=== PATIENT | female | born 1940 | race Caucasian/White ===

== ENCOUNTER 2017-05-01 16:30 | Inpatient (IN) | payer MEDICARE, OTHER ==
[~2017-05-01] VITALS: Ht 152.4 cm; Wt 60.9 kg
[~2017-05-01 16:30] MED LIST: AMLO2.5T PO; ATEN25TA PO; ATOR80TA PO; HYDR-3237 PO; LEVO50TA PO; LISI-170 PO; MONT10TA9 PO; VENL75TA PO
[2017-05-01] MEDS ORDERED: PLEASE ENTER ALLERGIES MC SCH ×2 (17:00)
[2017-05-01] MEDS ORDERED: SODIUM CHLORIDE FLUSH 10ML SYR IVF ONE (17:00)
[2017-05-01] MEDS ORDERED: ALBUTEROL 0.5%, 20ML NPPB SCH (17:00)
[2017-05-01 17:04] LABS: HEMATOCRIT 43.7 % (34.6-47.8); HEMOGLOBIN 14.3 g/dL (11.7-16.4); WHITE BLOOD COUNT 9.1 x10^3/uL (3.4-10)
[2017-05-01 17:14] LABS: ASPARTATE AMINO TRANSFERASE 29 U/L (15-37); BLOOD UREA NITROGEN 15 mg/dL (7-18)
[2017-05-01 17:21] LABS: IS PT STATUS REG ER OR PRE ER? YES
[2017-05-01] MEDS ORDERED: CEFTRIAXONE PMX 1GM/50ML 50 ML IVPB ONE (18:30)
[2017-05-01] MEDS ORDERED: AZITHROMYCIN 500 MG in SODIUM CHLORIDE 0.9% 250 ML IVPB ONE (18:30)
[2017-05-01] MEDS ORDERED: SODIUM CHLORIDE FLUSH 10ML SYR IVF PRN (19:00)
[2017-05-01] MEDS ORDERED: CEFTRIAXONE PMX 1GM/50ML 50 ML ONE (19:27)
[2017-05-01] MEDS: ENOXAPARIN 40 MG/0.4 ML SQ SCH (20:30)
[2017-05-01] MEDS ORDERED: GUAIFENESIN/DM 200-20MG, 10ML UDC PO PRN (20:30)
[2017-05-01] MEDS ORDERED: ACETAMINOPHEN 325 MG TABLET PO PRN (20:30)
[2017-05-01] MEDS ORDERED: ONDANSETRON 2MG/ML, 2ML IVPush PRN (20:30)
[2017-05-01] MEDS ORDERED: hydrALAzine 20 MG/ML, 1ML IVPush PRN (20:30)
[2017-05-01] MEDS ORDERED: POLYETHYLENE GLYCOL 17 GM PACKET PO PRN (20:30)
[2017-05-01] MEDS ORDERED: DOCUSATE 100 MG CAPSULE PO PRN (20:30)
[2017-05-01] MEDS: ATORVASTATIN 80 MG TABLET PO SCH (21:00)
[2017-05-01] MEDS ORDERED: methylPREDNISolone SOD SUCC 40 MG/ML ONE (21:23)
[2017-05-01] MEDS: methylPREDNISolone SOD SUCC 40 MG/ML IV SCH (21:27)
[2017-05-01] MEDS ORDERED: ALBUTEROL SULFATE 2.5 MG/3 ML NPPB PRN (22:00)
[2017-05-01] MEDS ORDERED: LISINOPRIL 20 MG TABLET ONE (22:25)
[2017-05-01] MEDS ORDERED: ENOXAPARIN 40 MG/0.4 ML ONE (22:26)
[2017-05-01] MEDS ORDERED: HYDROcodone/APAP 5/325 TABLET ONE (22:26)
[2017-05-01] MEDS: HYDROcodone/APAP 5/325 TABLET PO SCH (22:42)
[2017-05-01] MEDS: SODIUM CHLORIDE FLUSH 10ML SYR IVF SCH (22:43)
[2017-05-01] MEDS: LISINOPRIL 20 MG TABLET PO SCH (22:43)
[2017-05-02 00:09] VITALS: BP 138/86
[2017-05-02 02:30] VITALS: BP 83/53
[2017-05-02] MEDS ORDERED: FUROSEMIDE 20 MG/2 ML ONE (05:24)
[2017-05-02] MEDS: LEVOTHYROXINE 50 MCG TABLET PO SCH (05:35)
[2017-05-02] MEDS: methylPREDNISolone SOD SUCC 40 MG/ML IV SCH ×3 (05:36→21:57)
[2017-05-02] MEDS: HYDROcodone/APAP 5/325 TABLET PO SCH ×4 (05:37→21:59)
[2017-05-02] MEDS ORDERED: FUROSEMIDE 40 MG/4 ML IV ONE (06:00)
[2017-05-02 06:13] LABS: HEMATOCRIT 39.2 % (34.6-47.8); HEMOGLOBIN 12.9 g/dL (11.7-16.4); WHITE BLOOD COUNT 5.4 x10^3/uL (3.4-10)
[2017-05-02 06:24] LABS: BLOOD UREA NITROGEN 11 mg/dL (7-18)
[2017-05-02 06:59] VITALS: BP 148/73
[2017-05-02] MEDS: AMLODIPINE 2.5 MG TABLET PO SCH (08:31)
[2017-05-02] MEDS: MONTELUKAST 10 MG TABLET PO SCH (08:31)
[2017-05-02] MEDS: VENLAFAXINE 75 MG CAP ER PO SCH (08:31)
[2017-05-02] MEDS: ATENOLOL 25 MG TABLET PO SCH (08:31)
[2017-05-02] MEDS: LISINOPRIL 20 MG TABLET PO SCH ×2 (08:31→21:58)
[2017-05-02] MEDS: SODIUM CHLORIDE FLUSH 10ML SYR IVF SCH ×2 (08:32→21:59)
[2017-05-02] MEDS ORDERED: POTASSIUM CHLORIDE 20 MEQ TAB.ER.PRT PO ONE (09:00)
[2017-05-02 12:26] VITALS: BP 143/75
[2017-05-02] MEDS ORDERED: ONDANSETRON 2MG/ML, 2ML IVPush PRN (20:00)
[2017-05-02] MEDS ORDERED: SODIUM CHLORIDE FLUSH 10ML SYR IVF PRN (20:00)
[2017-05-02] MEDS ORDERED: ACETAMINOPHEN 325 MG TABLET PO PRN (20:00)
[2017-05-02] MEDS ORDERED: POLYETHYLENE GLYCOL 17 GM PACKET PO PRN (20:00)
[2017-05-02] MEDS ORDERED: DOCUSATE 100 MG CAPSULE PO PRN (20:00)
[2017-05-02] MEDS ORDERED: GUAIFENESIN/DM 200-20MG, 10ML UDC PO PRN (20:00)
[2017-05-02] MEDS ORDERED: ALBUTEROL SULFATE 2.5 MG/3 ML NPPB PRN (20:00)
[2017-05-02] MEDS ORDERED: hydrALAzine 20 MG/ML, 1ML IVPush PRN (20:00)
[2017-05-02 21:53] VITALS: BP 158/64
[2017-05-02] MEDS: ENOXAPARIN 40 MG/0.4 ML SQ SCH (21:58)
[2017-05-02] MEDS: ATORVASTATIN 80 MG TABLET PO SCH (21:58)
[2017-05-03 03:08] VITALS: BP 138/60
[2017-05-03] MEDS: HYDROcodone/APAP 5/325 TABLET PO SCH ×4 (06:49→20:11)
[2017-05-03] MEDS: methylPREDNISolone SOD SUCC 40 MG/ML IV SCH ×2 (06:49→15:56)
[2017-05-03] MEDS: LEVOTHYROXINE 50 MCG TABLET PO SCH (06:49)
[2017-05-03 08:00] VITALS: BP 160/75
[2017-05-03] MEDS ORDERED: PHARMACOKINETIC MONITORING MC PRN (08:00)
[2017-05-03] MEDS ORDERED: PHARMACOKINETIC CONSULTATION MC ONE (08:00)
[2017-05-03] MEDS ORDERED: VANCOMYCIN PER PHARMACY MC PRN (08:00)
[2017-05-03] MEDS: VANCOMYCIN PMX 1GM/200ML 200 ML IVPB SCH (09:38)
[2017-05-03] MEDS: MONTELUKAST 10 MG TABLET PO SCH (09:39)
[2017-05-03] MEDS: VENLAFAXINE 75 MG CAP ER PO SCH (09:39)
[2017-05-03] MEDS: LISINOPRIL 20 MG TABLET PO SCH ×2 (09:39→20:11)
[2017-05-03] MEDS: ATENOLOL 25 MG TABLET PO SCH (09:39)
[2017-05-03] MEDS: AMLODIPINE 2.5 MG TABLET PO SCH (09:39)
[2017-05-03] MEDS: SODIUM CHLORIDE FLUSH 10ML SYR IVF SCH ×2 (09:40→20:20)
[2017-05-03 15:06] VITALS: BP 132/72
[2017-05-03 19:35] VITALS: BP 146/68
[2017-05-03] MEDS: ENOXAPARIN 40 MG/0.4 ML SQ SCH (20:11)
[2017-05-03] MEDS: ATORVASTATIN 80 MG TABLET PO SCH (20:11)
[2017-05-04 01:30] VITALS: BP 154/71
[2017-05-04 05:23] LABS: HEMATOCRIT 38.8 % (34.6-47.8); HEMOGLOBIN 12.7 g/dL (11.7-16.4); WHITE BLOOD COUNT 14.8 x10^3/uL (3.4-10)
[2017-05-04 05:36] LABS: BLOOD UREA NITROGEN 22 mg/dL (7-18)
[2017-05-04] MEDS: HYDROcodone/APAP 5/325 TABLET PO SCH ×4 (06:41→21:50)
[2017-05-04] MEDS: LEVOTHYROXINE 50 MCG TABLET PO SCH (06:41)
[2017-05-04 08:00] VITALS: BP 127/78
[2017-05-04] MEDS: VENLAFAXINE 75 MG CAP ER PO SCH (09:34)
[2017-05-04] MEDS: MONTELUKAST 10 MG TABLET PO SCH (09:35)
[2017-05-04] MEDS: VANCOMYCIN PMX 1GM/200ML 200 ML IVPB SCH (09:35)
[2017-05-04] MEDS: LISINOPRIL 20 MG TABLET PO SCH ×2 (09:35→21:50)
[2017-05-04] MEDS: AMLODIPINE 2.5 MG TABLET PO SCH (09:36)
[2017-05-04] MEDS: ATENOLOL 25 MG TABLET PO SCH (09:36)
[2017-05-04] MEDS: SODIUM CHLORIDE FLUSH 10ML SYR IVF SCH ×2 (09:36→21:52)
[2017-05-04 14:00] VITALS: BP 132/80
[2017-05-04 19:13] VITALS: BP 162/69
[2017-05-04] MEDS: ATORVASTATIN 80 MG TABLET PO SCH (21:50)
[2017-05-04] MEDS: ENOXAPARIN 40 MG/0.4 ML SQ SCH (21:50)
[2017-05-05 01:11] VITALS: BP 139/66
[2017-05-05 05:28] LABS: BLOOD UREA NITROGEN 25 mg/dL (7-18)
[2017-05-05 05:44] LABS: HEMATOCRIT 38.9 % (34.6-47.8); HEMOGLOBIN 12.7 g/dL (11.7-16.4); WHITE BLOOD COUNT 10.9 x10^3/uL (3.4-10)
[2017-05-05] MEDS: LEVOTHYROXINE 50 MCG TABLET PO SCH (06:11)
[2017-05-05] MEDS: HYDROcodone/APAP 5/325 TABLET PO SCH ×4 (06:12→21:00)
[2017-05-05 08:15] VITALS: BP 179/76
[2017-05-05] MEDS: AZITHROMYCIN 250 MG TABLET PO SCH (09:00)
[2017-05-05] MEDS: SODIUM CHLORIDE FLUSH 10ML SYR IVF SCH ×2 (09:00→22:10)
[2017-05-05] MEDS: VENLAFAXINE 75 MG CAP ER PO SCH (10:46)
[2017-05-05] MEDS: LISINOPRIL 20 MG TABLET PO SCH ×2 (10:46→22:09)
[2017-05-05] MEDS: MONTELUKAST 10 MG TABLET PO SCH (10:46)
[2017-05-05] MEDS: ATENOLOL 25 MG TABLET PO SCH (10:46)
[2017-05-05] MEDS: AMLODIPINE 2.5 MG TABLET PO SCH (10:46)
[2017-05-05] MEDS ORDERED: OMNIPAQUE 350 MG/ML, 100ML BOTTLE ONE (15:19)
[2017-05-05 15:25] VITALS: BP 150/71
[2017-05-05 18:50] VITALS: BP 134/72
[2017-05-05] MEDS: ENOXAPARIN 40 MG/0.4 ML SQ SCH (20:30)
[2017-05-05 22:08] VITALS: BP 149/73
[2017-05-05] MEDS: ATORVASTATIN 80 MG TABLET PO SCH (22:09)
[2017-05-06 00:11] VITALS: BP 149/65
[2017-05-06 05:05] LABS: HEMATOCRIT 38.7 % (34.6-47.8); HEMOGLOBIN 12.7 g/dL (11.7-16.4); WHITE BLOOD COUNT 10.6 x10^3/uL (3.4-10)
[2017-05-06 05:23] LABS: BLOOD UREA NITROGEN 26 mg/dL (7-18)
[2017-05-06] MEDS: HYDROcodone/APAP 5/325 TABLET PO SCH ×4 (06:00→20:04)
[2017-05-06] MEDS: LEVOTHYROXINE 50 MCG TABLET PO SCH (06:09)
[2017-05-06 07:23] VITALS: BP 149/70
[2017-05-06] MEDS: SODIUM CHLORIDE FLUSH 10ML SYR IVF SCH ×2 (09:00→20:08)
[2017-05-06] MEDS: VENLAFAXINE 75 MG CAP ER PO SCH (09:00)
[2017-05-06] MEDS: AMLODIPINE 2.5 MG TABLET PO SCH (10:32)
[2017-05-06] MEDS: MONTELUKAST 10 MG TABLET PO SCH (10:32)
[2017-05-06] MEDS: ATENOLOL 25 MG TABLET PO SCH (10:32)
[2017-05-06] MEDS: AZITHROMYCIN 250 MG TABLET PO SCH (10:32)
[2017-05-06] MEDS: LISINOPRIL 20 MG TABLET PO SCH ×2 (10:32→20:03)
[2017-05-06] MEDS ORDERED: FUROSEMIDE 20 MG/2 ML IV ONE (10:52)
[2017-05-06 14:00] VITALS: BP 138/64
[2017-05-06] MEDS: FUROSEMIDE 20 MG/2 ML IV SCH (17:00)
[2017-05-06 19:01] VITALS: BP 126/70
[2017-05-06] MEDS: ATORVASTATIN 80 MG TABLET PO SCH (20:04)
[2017-05-06] MEDS: ENOXAPARIN 40 MG/0.4 ML SQ SCH (20:08)
[2017-05-07 01:48] VITALS: BP 162/71
[2017-05-07] MEDS: HYDROcodone/APAP 5/325 TABLET PO SCH ×4 (06:00→20:15)
[2017-05-07] MEDS: LEVOTHYROXINE 50 MCG TABLET PO SCH (06:07)
[2017-05-07 06:25] LABS: HEMATOCRIT 39.7 % (34.6-47.8); WHITE BLOOD COUNT 10.2 x10^3/uL (3.4-10)
[2017-05-07 06:47] LABS: BLOOD UREA NITROGEN 25 mg/dL (7-18)
[2017-05-07 07:07] VITALS: BP 169/70
[2017-05-07] MEDS: FUROSEMIDE 20 MG/2 ML IV SCH ×2 (08:04→17:03)
[2017-05-07] MEDS: SODIUM CHLORIDE FLUSH 10ML SYR IVF SCH ×2 (09:00→20:15)
[2017-05-07] MEDS: LISINOPRIL 20 MG TABLET PO SCH ×2 (09:44→20:15)
[2017-05-07] MEDS: ATENOLOL 25 MG TABLET PO SCH (09:44)
[2017-05-07] MEDS: MONTELUKAST 10 MG TABLET PO SCH (09:44)
[2017-05-07] MEDS: VENLAFAXINE 75 MG CAP ER PO SCH (09:44)
[2017-05-07] MEDS: AMLODIPINE 2.5 MG TABLET PO SCH (09:45)
[2017-05-07 14:00] VITALS: BP 158/71
[2017-05-07] MEDS ORDERED: POTASSIUM CHLORIDE 20 MEQ TAB.ER.PRT PO ONE (16:00)
[2017-05-07 20:08] VITALS: BP 100/62
[2017-05-07] MEDS: ATORVASTATIN 80 MG TABLET PO SCH (20:15)
[2017-05-07] MEDS: ENOXAPARIN 40 MG/0.4 ML SQ SCH (20:15)
[2017-05-08 01:14] VITALS: BP 101/56
[2017-05-08] MEDS: LEVOTHYROXINE 50 MCG TABLET PO SCH (05:16)
[2017-05-08] MEDS: HYDROcodone/APAP 5/325 TABLET PO SCH (05:17)
[2017-05-08 05:42] LABS: HEMATOCRIT 39.4 % (34.6-47.8); HEMOGLOBIN 12.9 g/dL (11.7-16.4); WHITE BLOOD COUNT 10.3 x10^3/uL (3.4-10)
[2017-05-08 06:25] LABS: BLOOD UREA NITROGEN 24 mg/dL (7-18)
[2017-05-08 07:20] VITALS: BP_SYST 132; BP_SYST 163; BP_DIAS 72; BP_DIAS 86
[2017-05-08] MEDS: VENLAFAXINE 75 MG CAP ER PO SCH (08:39)
[2017-05-08] MEDS: MONTELUKAST 10 MG TABLET PO SCH (08:39)
[2017-05-08] MEDS: ATENOLOL 25 MG TABLET PO SCH (08:40)
[2017-05-08] MEDS: AMLODIPINE 2.5 MG TABLET PO SCH (08:40)
[2017-05-08] MEDS: LISINOPRIL 20 MG TABLET PO SCH (08:40)
[2017-05-08] MEDS: SODIUM CHLORIDE FLUSH 10ML SYR IVF SCH (08:42)
[2017-05-08] MEDS: FUROSEMIDE 20 MG/2 ML IV SCH (08:46)
[2017-05-08] MEDS ORDERED: FURO-93 PO (13:08)
[2017-05-08] MEDS ORDERED: FLUT1DIS3 INH (13:08)
[2017-05-08] MEDS ORDERED: PRED5TAB PO (13:08)
[2017-05-08] MEDS ORDERED: POTA20TA14 PO (13:08)
[2017-05-08 13:26] VITALS: BP 120/64
== END 2017-05-08 15:40 | disposition home or self-care (01) | DRG 193 ==
LOC: SUATTDRO 18:31 → ED 18:37 → EDIP 18:38 → ED 18:51 → 4WST 23:35
PROVIDERS: ADMIT Hospitalist; ATTEND Family Medicine
DX: J15.9 Unspecified bacterial pneumonia (principal); J96.21 Acute and chronic respiratory failure with hypoxia; J81.0 Acute pulmonary edema; I27.20 Pulmonary hypertension, unspecified; J44.0 Chronic obstructive pulmonary disease with (acute) lower respiratory infection; J44.1 Chronic obstructive pulmonary disease with (acute) exacerbation; E03.9 Hypothyroidism, unspecified; E78.5 Hyperlipidemia, unspecified; F32.9 Major depressive disorder, single episode, unspecified; I10 Essential (primary) hypertension; I25.10 Atherosclerotic heart disease of native coronary artery without angina pectoris; I25.2 Old myocardial infarction; K59.00 Constipation, unspecified; Z87.891 Personal history of nicotine dependence; Z95.1 Presence of aortocoronary bypass graft; Z95.5 Presence of coronary angioplasty implant and graft; Z99.81 Dependence on supplemental oxygen
CPT/HCPCS: 36415; 71010; 71275; 80048; 80053; 82040; 83605; 83735; 83880; 84100; 84145; 84484; 85025; 87040; 93005; 93306; 94640; 96365; 96366; 96368; J0456; J0696; J1650; J1940; J3370; J7613; Q9967; J2920; J7050; J7512

== ENCOUNTER → 2017-06-26 | Outpatient (CLI) | payer MEDICARE, OTHER ==
[~2017-06-26] MED LIST changes: +FLUT1DIS3 INH; +FURO-93 PO; +POTA20TA14 PO; +PRED5TAB PO
== END ==
LOC: CFH 12:46
PROVIDERS: ATTEND Neurological Surgery
DX: S12.030A Displaced posterior arch fracture of first cervical vertebra, initial encounter for closed fracture (principal); M50.30 Other cervical disc degeneration, unspecified cervical region; X58.XXXA Exposure to other specified factors, initial encounter; Y93.89 Activity, other specified; Y92.89 Other specified places as the place of occurrence of the external cause; Y99.8 Other external cause status
CPT/HCPCS: 72125

== ENCOUNTER → 2017-07-28 | Outpatient (CLI) | payer MEDICARE, OTHER | LOC: CFH 10:28 | PROVIDERS: ATTEND Internal Medicine | DX: J43.9 Emphysema, unspecified (principal); J84.10 Pulmonary fibrosis, unspecified | CPT/HCPCS: 71250 ==

== ENCOUNTER → 2019-10-06 | Outpatient (CLI) | payer MEDICARE, OTHER ==
[~2019-10-06] MED LIST changes: -AMLO2.5T PO; +AMLO2.5T5 PO; +MONT10TA11 PO; -MONT10TA9 PO
== END | disposition home or self-care (01) ==
LOC: CFH 14:42
PROVIDERS: ATTEND Internal Medicine
DX: J84.10 Pulmonary fibrosis, unspecified (principal); J43.9 Emphysema, unspecified; R59.9 Enlarged lymph nodes, unspecified; I70.0 Atherosclerosis of aorta; M85.88 Other specified disorders of bone density and structure, other site; M43.8X4 Other specified deforming dorsopathies, thoracic region; M51.36 Other intervertebral disc degeneration, lumbar region; M41.85 Other forms of scoliosis, thoracolumbar region; I51.7 Cardiomegaly
CPT/HCPCS: 71250